=== PATIENT | male | born 1955 | race Caucasian/White ===

== ENCOUNTER 2019-01-15 16:54 | Emergency (ER) | payer OTHER ==
[~2019-01-15] VITALS: Ht 193 cm; Wt 122.5 kg
[2019-01-15] MEDS ORDERED: NORVASC5 MG PO (17:00)
[2019-01-15 17:35] LABS: URINE BILIRUBIN NEGATIVE (Negative); URINE BLOOD NEGATIVE (Negative); URINE CLARITY CLEAR; URINE COLOR YELLOW; URINE GLUCOSE-RANDOM* NEGATIVE (Negative); URINE KETONES NEGATIVE (Negative); URINE LEUKOCYTES-REFLEX NEGATIVE (Negative); URINE NITRITE-REFLEX NEGATIVE (Negative); URINE PROTEIN (DIPSTICK) TRACE (Negative); URINE SPECIFIC GRAVITY >= 1.030 (1.005-1.035); URINE UROBILINOGEN 0.2 E.U./dl (0.2-1.0)
[2019-01-15 17:53] LABS: ABSOLUTE NEUTROPHILS 5.1 thou/uL (1.4-8.2); BASOPHILS 0.9 % (0.0-2.0); EOSINOPHILS 1.7 % (0.0-3.0); HEMATOCRIT 38.6 % (42.0-52.0); HEMOGLOBIN 13.2 gm/dL (14.0-18.0); LYMPHOCYTES 27.1 % (24.0-44.0); MCH 33.4 pg (26.0-34.0); MCHC 34.3 g/dL (28.0-37.0); MCV 97.4 fL (80.0-100.0); MONOCYTES 7.8 % (1.0-8.0); PLATELET COUNT 285 thou/uL (150-400); POLYS 62.5 % (36.0-66.0); RBC 3.96 mil/uL (4.50-6.00); RDW 13.8 % (10.5-14.5); WBC 8.1 thou/uL (4.0-11.0)
[2019-01-15 18:01] LABS: CREATININE 0.8 mg/dL (0.7-1.3); POTASSIUM 3.9 mmol/L (3.5-5.1)
[2019-01-15 18:30] VITALS: BP 159/99
== END 2019-01-15 18:30 | disposition home or self-care (01) ==
LOC: ER 16:54
PROVIDERS: Nurse Practitioner Family
DX: I10 Essential (primary) hypertension (principal); E03.9 Hypothyroidism, unspecified; E78.00 Pure hypercholesterolemia, unspecified; M06.9 Rheumatoid arthritis, unspecified; Z90.49 Acquired absence of other specified parts of digestive tract; Z86.73 Personal history of transient ischemic attack (TIA), and cerebral infarction without residual deficits